=== PATIENT | female | born 1975 | race Two or more races ===

== ENCOUNTER 2021-05-09 00:56 | Emergency (ER) | payer OTHER ==
[~2021-05-09] VITALS: Ht 175.3 cm; Wt 97.5 kg
[~2021-05-09 00:56] MED LIST: KETO10TA2 PO
[2021-05-09] MEDS ORDERED: VISTARIL50 MG PO (04:36)
== END 2021-05-09 04:43 ==
LOC: ER 00:56
DX: R00.2 Palpitations (principal); F41.8 Other specified anxiety disorders; T39.8X5A Adverse effect of other nonopioid analgesics and antipyretics, not elsewhere classified, initial encounter; Y92.098 Other place in other non-institutional residence as the place of occurrence of the external cause